=== PATIENT | male | born 1975 | race Caucasian/White ===

== ENCOUNTER → 2021-03-12 01:00 | Outpatient (CLI) | payer BC, SELFPAY ==
[2021-03-12 18:54] LABS: SARS-CoV-2 RNA PCR Negative
== END ==
PROVIDERS: PCP Internal Medicine; Visit Provider Internal Medicine Gastroenterology
DX: Z01.812 Encounter for preprocedural laboratory examination (principal); Z20.822 Contact with and (suspected) exposure to COVID-19
CPT/HCPCS: C9803; U0003; U0005

== ENCOUNTER 2021-03-15 01:09 | Day surgery (SDC) | payer BC, SELFPAY ==
[2021-03-10 11:36] VITALS: BMI 27.7
--- NOTE | 2021-03-15 08:26 | P.PNAN_ITS ---
Anes - Initial Pre Proc Eval Procedure: Operation Date: 03/15/21 14:00 Proposed Procedures p Screening Colonoscopy - Reilly Espino MD Date/Time: 03/15/21 08:26 Surgeon: Reilly Espino MD Pre Op Diagnosis: neoplasm screening Patient Data Age: 45 Gender: M Height: 1.96 m Weight: 106 kg Allergies Allergy/AdvReac Type Severity Reaction Status Date / Time No Known Allergies Allergy Verified 03/15/21 11:07 Home Medications Medication Instructions Recorded Confirmed Type Adults Multivitamin 1 cap PO DAILY 03/14/21 03/14/21 History Vitamin D3 1 cap PO DAILY 03/14/21 03/14/21 History amlodipine 5 mg PO DAILY 03/14/21 03/14/21 History levothyroxine 75 mcg PO DAILY 03/14/21 03/14/21 History omeprazole 20 mg PO DAILY 03/14/21 03/14/21 History sertraline [Zoloft] 50 mg PO DAILY 03/14/21 03/14/21 History simvastatin 40 mg PO DAILY 03/14/21 03/14/21 History Patient hx anesthesia problems: none Family hx anesthesia problems: none Results Review: All pre-operative results and documents have been reviewed as part of the pre-operative evaluation. [facility] Past Medical History Medical History (Updated 03/15/21 @ 08:27 by Clifford Triana DO) GERD (gastroesophageal reflux disease) Hyperlipidemia Hypertension Hypothyroidism Prostate cancer Social History Social History Smoking status: Never smoker Alcohol intake: never Substance use: never Living arrangements: with family Spiritual care concerns: No Anes - Eval Final PreProcedure Day of Procedure 03/15/21 08:26 Patient weight: overweight Heart: regular rate and rhythm Lungs: clear to auscultation and normal air movement Airway: Mallampati scale class II Neurological: alert and oriented Last oral intake: >/= 8 hours ASA classification: III Emergent: no Anesthetic plan: proceed Anesthesia type and monitoring: general GIVS and standard monitoring Results Review: All pre-operative results and documents have been reviewed as part of the pre-operative evaluation. Informed Consent: The patient's anesthetic plan and its attendant risks and benefits were discussed with the patient/family/POA. Questions were solicited and answers provided to the satisfaction of the patient/family/POA.
[2021-03-15 11:08] VITALS: BP 127/91; PULSE 89; RESP 16; TEMP 36.4; O2SAT 99
[2021-03-15] MEDS: LACTATED RINGERS 1,000 ML 150 ML IV CONT (11:18)
[2021-03-15 12:32] VITALS: BP 111/77; PULSE 78; RESP 14; O2SAT 94
--- NOTE | 2021-03-15 12:34 | PM.HPGS ---
History of Present Illness History of Present Illness Consent: Risks, benefits, and alternatives have been discussed and questions answered. Patient agrees to proceed with procedure. Chief complaint: neoplasm screening Narrative: Blas Garnica is a 45 year old male here for first screening colonoscopy Review of Systems Constitutional: Constitutional: Denies headache(s) and Denies weakness Eyes: Eyes: Denies blurry vision ENT: Reports Normal hearing present, Denies headache(s) and Denies neck pain Cardiovascular: Cardiovascular: Denies chest pain and Denies dyspnea Respiratory: Respiratory: Denies dyspnea Gastrointestinal: Gastrointestinal: Reports no additional gastrointestinal complaints Genitourinary: Genitourinary: Denies dysuria Musculoskeletal: Musculoskeletal: Denies neck pain Integumentary/Breasts: Skin/Breast: Denies dry skin Neurologic: Reports Normal hearing present, Denies headache(s) and Denies weakness Psychiatric: Psychiatric: Denies anxiety Endocrine: Endocrine: Denies change in body appearance Hematologic/Lymphatic: Hematologic/Lymphatic: Denies easy bleeding Allergic/Immunologic: Allergic/Immunologic: Denies urticaria PMF Past Medical History Medical History (Updated 03/15/21 @ 12:34 by Reilly Espino MD) Colon cancer screening GERD (gastroesophageal reflux disease) Hyperlipidemia Hypertension Hypothyroidism Prostate cancer Social History Social History Smoking status: Never smoker Alcohol intake: never Substance use: never Living arrangements: with family Spiritual care concerns: No Meds Home Medications and Allergies Home Medications Medication Instructions Recorded Confirmed Type Adults Multivitamin 1 cap PO DAILY 03/14/21 03/14/21 History Vitamin D3 1 cap PO DAILY 03/14/21 03/14/21 History amlodipine 5 mg PO DAILY 03/14/21 03/14/21 History levothyroxine 75 mcg PO DAILY 03/14/21 03/14/21 History omeprazole 20 mg PO DAILY 03/14/21 03/14/21 History sertraline [Zoloft] 50 mg PO DAILY 03/14/21 03/14/21 History simvastatin 40 mg PO DAILY 03/14/21 03/14/21 History Allergies Allergy/AdvReac Type Severity Reaction Status Date / Time No Known Allergies Allergy Verified 03/15/21 11:07 Vital Signs Vital Signs - 24 hr 03/15/21 11:08 Temperature 97.6 F Pulse Rate 89 Respiratory Rate 16 Blood Pressure 127/91 H Pulse Oximetry 99 Exam Const: General: comfortable and no acute distress HENMT: General nose exam: Normal nares present Eyes: General: appearance normal, both eyes and all related structures Neck: Neck: no JVD Resp: Auscultation: clear to auscultation bilaterally Cardio: Rate: regular rate Rhythm: regular rhythm GI: Inspection: non-distended GI Palp: Yes Soft to palpation Skin: General skin exam: normal color Neuro: General: gait normal Speech: normal speech Extrem: General: normal to inspection Psych: Mental Status: mental status grossly normal Assessment and Plan Assessment and plan (1) Colon cancer screening: Code(s): Z12.11 - Encounter for screening for malignant neoplasm of colon Status: Acute Assessment and Plan: colonoscopy
[2021-03-15 12:42] VITALS: BP 97/72; PULSE 81; RESP 14; O2SAT 96
[2021-03-15 12:52] VITALS: BP 123/80; PULSE 78; RESP 16; O2SAT 96
== END 2021-03-15 13:04 | disposition home or self-care (01) ==
PROVIDERS: PCP Internal Medicine; Visit Provider Internal Medicine Gastroenterology
PROC: 0DJD8ZZ Inspection of Lower Intestinal Tract, Via Natural or Artificial Opening Endoscopic (ICD-10-PCS; CPT 45378; principal; 2021-03-15 14:00)
DX: Z12.11 Encounter for screening for malignant neoplasm of colon (principal); K64.8 Other hemorrhoids; I10 Essential (primary) hypertension; E78.5 Hyperlipidemia, unspecified; E03.9 Hypothyroidism, unspecified; K21.9 Gastro-esophageal reflux disease without esophagitis; Z85.46 Personal history of malignant neoplasm of prostate
CPT/HCPCS: 45378; J2704; J7120

== ENCOUNTER 2023-03-20 06:33 | Outpatient (CLI) | payer BC, SELFPAY ==
--- NOTE | ~2023-03-20 | CT_ITS ---
CT of the Abdomen and Pelvis: Indication: Abdominal distention Technique: 2.5 mm axial scans were obtained through the abdomen and pelvis following intravenous adm inistration of 100 cc of Omnipaque 350. Dose reduction technique was used on this scan by utilizing a utomated exposure control and iterative reconstruction technique. The dose-length product (DLP) was 7 11.63 mGy-cm. Findings: Scans through the lung bases are unremarkable. Several tiny hepatic cysts are present. Gallbladder absent. The spleen, pancreas, adrenals and left k idney are within normal limits. 2 mm nonobstructing right renal stone present. No evidence of aortic aneurysm. No lymphadenopathy. No bowel obstruction or bowel wall thickening. There is no evidence to suggest acute appendicitis. Sm all fat-containing umbilical hernia noted. Images through the pelvis were performed. Urinary bladder unremarkable. Prostate gland and seminal ve sicles are unremarkable. No ascites. Impression: 2 mm nonobstructing right renal stone. Small fat-containing umbilical hernia. Reviewed, dictated and finalized at [facility]. CHECKER Impression: 2 mm nonobstructing right renal stone. Small fat-containing umbilical hernia.
[2023-03-20 07:51] LABS: Estimated Glomerular Filt Rate 59
== END 2023-03-20 06:34 | disposition home or self-care (01) ==
PROVIDERS: PCP Internal Medicine; Visit Provider Internal Medicine Gastroenterology
DX: K42.9 Umbilical hernia without obstruction or gangrene (principal); R14.0 Abdominal distension (gaseous); N20.0 Calculus of kidney
CPT/HCPCS: 74177; Q9967

== ENCOUNTER 2023-06-20 02:19 | Day surgery (SDC) | payer BC, OTHER, SELFPAY ==
[2023-06-12 14:39] VITALS: BMI 28.5
--- NOTE | 2023-06-18 08:31 | SUR.PREOP ---
Patient called regarding upcoming procedure. Voicemail left regarding appointment times.
[2023-06-20 06:19] VITALS: BP 164/103; PULSE 79; RESP 20; TEMP 36.8; O2SAT 98; BMI 27.1
[2023-06-20] MEDS: LACTATED RINGERS 1,000 ML 30 ML IV CONT (06:23)
--- NOTE | 2023-06-20 07:22 | WPDANESEPPF ---
Anes - Initial Pre Proc Eval Procedure: Operation Date: 06/20/23 07:30 Proposed Procedures p Esophagogastroduodenoscopy - Reilly Espino MD Date/Time: 06/20/23 07:22 Surgeon: Reilly Espino MD Pre Op Diagnosis: Abdominal pain,Abdominal distension(gaseous) Patient Data Age: 47 Gender: M Height: 1.96 m Weight: 104 kg Last Vital Signs Temp 98.3 F 06/20/23 06:19 Pulse 79 06/20/23 06:19 Resp 20 06/20/23 06:19 BP 164/103 H 06/20/23 06:19 Pulse Ox 98 06/20/23 06:19 O2 Del Method Room Air 06/20/23 06:19 Allergies Allergy/AdvReac Type Severity Reaction Status Date / Time No Known Allergies Allergy Verified 06/20/23 06:16 Home Medications Medication Instructions Recorded Confirmed Type Adults Multivitamin 1 cap PO DAILY 03/14/21 06/12/23 History Vitamin D3 1 cap PO DAILY 03/14/21 06/12/23 History amlodipine 5 mg tablet 5 mg PO DAILY 03/14/21 06/20/23 History levothyroxine 75 mcg tablet 75 mcg PO DAILY 03/14/21 06/20/23 History omeprazole 20 mg capsule,delayed 20 mg PO DAILY 03/14/21 06/12/23 History release simvastatin 40 mg tablet 40 mg PO DAILY 03/14/21 06/12/23 History acyclovir 400 mg tablet 400 mg PO DAILY 06/12/23 06/12/23 History hydrocodone 5 mg-acetaminophen 325 1 - 2 tablet PO Q4H PRN Pain 06/12/23 06/20/23 History mg tablet ketorolac 10 mg tablet 10 mg PO Q6H PRN Pain 06/12/23 06/12/23 History sertraline 100 mg tablet 50 mg PO DAILY 06/12/23 06/12/23 History tamsulosin 0.4 mg capsule 0.4 mg PO DAILY 06/12/23 06/12/23 History testosterone DIRECTED 06/12/23 History Patient hx anesthesia problems: none Family hx anesthesia problems: none Results Review: All pre-operative results and documents have been reviewed as part of the pre-operative evaluation. [facility] Past Medical History Medical History Abdominal lipoma Abdominal pain Bloating Colon cancer screening GERD (gastroesophageal reflux disease) Hyperlipidemia Hypertension Hypothyroidism Prostate cancer Umbilical hernia Family History Family History Father Malignant neoplasm of prostate Social History Social History Smoking status: Never smoker Alcohol intake: current Substance use: never Substance use type: does not use Living arrangements: alone Spiritual care concerns: No Anes - Eval Final PreProcedure Day of Procedure 06/20/23 07:22 Patient weight: normal Heart: regular rate and rhythm Lungs: clear to auscultation Airway: Mallampati scale class II Neurological: alert and oriented Last oral intake: >/= 8 hours ASA classification: III Emergent: no Anesthetic plan: proceed Anesthesia type and monitoring: general GIVS and standard monitoring Results Review: All pre-operative results and documents have been reviewed as part of the pre-operative evaluation. Informed Consent: The patient's anesthetic plan and its attendant risks and benefits were discussed with the patient/family/POA. Questions were solicited and answers provided to the satisfaction of the patient/family/POA.
--- NOTE | 2023-06-20 07:28 | PM.HPGS ---
History of Present Illness History of Present Illness Consent: Risks, benefits, and alternatives have been discussed and questions answered. Patient agrees to proceed with procedure. Chief complaint: Abdominal pain,Abdominal distension(gaseous) Narrative: Blas Garnica is a 47 year old male here for egd, c/o bloating, CT scan showed small umbilical hernia, he is post cholecystectomy Review of Systems Review of Systems: All systems reviewed & are unremarkable except as noted in HPI and below PMFSH Past Medical History Medical History Abdominal lipoma Abdominal pain Bloating Colon cancer screening GERD (gastroesophageal reflux disease) Hyperlipidemia Hypertension Hypothyroidism Prostate cancer Umbilical hernia Family History Family History Father Malignant neoplasm of prostate Social History Social History Smoking status: Never smoker Alcohol intake: current Substance use: never Substance use type: does not use Living arrangements: alone Spiritual care concerns: No Meds Home Medications and Allergies Home Medications Medication Instructions Recorded Confirmed Type Adults Multivitamin 1 cap PO DAILY 03/14/21 06/12/23 History Vitamin D3 1 cap PO DAILY 03/14/21 06/12/23 History amlodipine 5 mg tablet 5 mg PO DAILY 03/14/21 06/20/23 History levothyroxine 75 mcg tablet 75 mcg PO DAILY 03/14/21 06/20/23 History omeprazole 20 mg capsule,delayed 20 mg PO DAILY 03/14/21 06/12/23 History release simvastatin 40 mg tablet 40 mg PO DAILY 03/14/21 06/12/23 History acyclovir 400 mg tablet 400 mg PO DAILY 06/12/23 06/12/23 History hydrocodone 5 mg-acetaminophen 325 1 - 2 tablet PO Q4H PRN Pain 06/12/23 06/20/23 History mg tablet ketorolac 10 mg tablet 10 mg PO Q6H PRN Pain 06/12/23 06/12/23 History sertraline 100 mg tablet 50 mg PO DAILY 06/12/23 06/12/23 History tamsulosin 0.4 mg capsule 0.4 mg PO DAILY 06/12/23 06/12/23 History testosterone DIRECTED 06/12/23 History Allergies Allergy/AdvReac Type Severity Reaction Status Date / Time No Known Allergies Allergy Verified 06/20/23 06:16 Vital Signs Vital Signs - 24 hr 06/20/23 06:19 Temperature 98.3 F Pulse Rate 79 Respiratory Rate 20 Blood Pressure 164/103 H Pulse Oximetry 98 Oxygen Delivery Room Air Exam Const: General: comfortable and no acute distress HENMT: Face/Nose/Sinus: Normal nares present Eyes: General: appearance normal, both eyes and all related structures Neck: Neck: no JVD Resp: Auscultation: clear to auscultation bilaterally Cardio: Rate: regular rate Rhythm: regular rhythm GI: Inspection: non-distended GI Palp: Yes Soft to palpation Skin: General skin exam: normal color Neuro: General: gait normal Speech: normal speech Extrem: General: normal to inspection Psych: Mental Status: mental status grossly normal Assessment and Plan Assessment and plan (1) Abdominal pain: Code(s): R10.9 - Unspecified abdominal pain Status: Acute Assessment and Plan: egd with bx (2) Bloating: Code(s): R14.0 - Abdominal distension (gaseous) Status: Acute
[2023-06-20 07:41] VITALS: BP 123/80; PULSE 78; RESP 22; O2SAT 97
[2023-06-20 07:51] VITALS: BP 148/96; PULSE 83; RESP 24; O2SAT 97
[2023-06-20 08:01] VITALS: BP 135/98; PULSE 76; RESP 19; O2SAT 99
== END 2023-06-20 08:09 | disposition home or self-care (01) ==
PROVIDERS: PCP Internal Medicine; Visit Provider Internal Medicine Gastroenterology
PROC: 0DJ08ZZ Inspection of Upper Intestinal Tract, Via Natural or Artificial Opening Endoscopic (ICD-10-PCS; CPT 43235; principal; 2023-06-20 07:30)
DX: K29.50 Unspecified chronic gastritis without bleeding (principal); K21.9 Gastro-esophageal reflux disease without esophagitis; E78.5 Hyperlipidemia, unspecified; I10 Essential (primary) hypertension; E03.9 Hypothyroidism, unspecified; Z85.46 Personal history of malignant neoplasm of prostate
CPT/HCPCS: 43239; 88305; J2704; J7120